=== PATIENT | male | born 1975 | race Caucasian/White ===

== ENCOUNTER 2020-12-20 23:58 | Emergency (ER) | payer BC, SELFPAY ==
[2020-12-21 00:03] VITALS: BP 118/56; PULSE 115; RESP 20; TEMP 36.9; O2SAT 98
[2020-12-21] MEDS: SODIUM CHLORIDE 0.9% 1,000 ML 1000 ML IV (00:29)
[2020-12-21 00:31] LABS: Add Manual Diff / Slide Review NO; Basophils Absolute Auto 0 /uL (0-100); Basophils Percent Auto 0.2 % (0-2); Eosinophils Absolute Auto 0 /uL (0-450); Eosinophils Percent Auto 0.1 % (2-4); Hematocrit 44.1 % (41-53); Hemoglobin 15.2 g/dL (13.5-17.5); Lymphocytes Absolute Auto 300 /uL (1100-4500); Mean Corpuscular HGB Conc 34.3 % (30-36); Mean Corpuscular Volume 87.4 fL (80-100); Monocytes Absolute Auto 200 /uL (0-900); Monocytes Percent Auto 2.3 % (3-14); Neutrophils Absolute Auto 8700 /uL (1500-7000); Neutrophils Percent Auto 94.4 % (50-75); Platelet Count 119 X10^3/uL (150-400); Red Blood Cell Count 5.05 X10^6/uL (4.5-5.9); Red Cell Distribution Width 14.8 % (11.6-14.8); White Blood Cell Count 9.2 X10^3/uL (4.5-11.0)
[2020-12-21 00:34] LABS: Alanine Aminotransferase 97 IU/L (<50); Albumin Globulin Ratio 1.1 (1.0-2.8); Alkaline Phosphatase 105 U/L (38-126); Aspartate Aminotransferase 75 IU/L (17-59); BUN Creatinine Ratio 16.8 (6-22); Bilirubin Total 2.1 mg/dL (0.2-1.3); Blood Urea Nitrogen 19 mg/dL (9-20); Calcium 9.7 mg/dL (8.4-10.2); Carbon Dioxide 25 mmol/L (22-32); Chloride 99 mmol/L (98-107); Estimated Glomerular Filt Rate > 60.0 mL/min (>60); Globulin 3.5 g/dL (1.7-4.1); Glucose 148 mg/dL (70-100); HEMOLYSIS < 15 (0-50); Potassium 3.6 mmol/L (3.4-5.1); Sodium 133 mmol/L (137-145); Total Protein 7.5 g/dL (6.3-8.2)
--- NOTE | 2020-12-21 00:35 | ED_ITS ---
HPI - Headache General Chief Complaint: Headache Stated Complaint: thinks he has heat stroke Time Seen by Provider: 12/21/20 00:08 Mode of arrival: Ambulatory History of Present Illness HPI Narrative: Patient is a 45-year-old male here for evaluation of we thinks is a heat injury. He is also having a headache. He states that 2 days ago when it was hot outside he was outside doing some target shooting. He thought that he was drinking enough water however since that time he has felt very poorly. Has had decreased urine output. Has had a headache and generally not feeling well. Related Data Home Medications Medication Instructions Recorded Confirmed donepezil 5 mg tablet (Aricept) PO HS #0 08/23/16 Allergies Allergy/AdvReac Type Severity Reaction Status Date / Time amoxicillin [AMOXICILLIN] Allergy Intermediate white rash Unverified 10/03/17 12 :08 iodine [IODINE] Allergy Unknown Unverified 10/03/17 12:08 fexofenadine [From JEREMY] AdvReac Unknown Unverified 10/03/17 12:08 morphine [MORPHINE] AdvReac Unknown NEVER HAD Unverified 10/03/17 12:08 RELIEF FROM THIS MED Review of Systems Constitutional Constitutional: Reports headache(s) ENT Ears, Nose, Mouth, and Throat: Reports headache(s) Cardiovascular Cardiovascular: Denies chest pain and Denies dyspnea Respiratory Respiratory: Denies dyspnea Gastrointestinal Gastrointestinal: Reports system reviewed and no additional complaints, except as documented and Reports nausea Musculoskeletal Musculoskeletal: Reports system reviewed and no additional complaints, except as documented Integumentary/Breasts Skin/Breast: Reports system reviewed and no additional complaints, except as documented Neurologic Neurologic: Reports headache(s) Hematologic/Lymphatic On Anticoagulants: No Patient History Medical History Healthy adult Social History lives independently: Yes Exam Initial Vital Signs Initial Vital Signs: Vital Signs Temperature 98.5 F 12/21/20 00:03 Pulse Rate 115 H 12/21/20 00:03 Respiratory Rate 20 12/21/20 00:03 Blood Pressure 118/56 L 12/21/20 00:03 Pulse Oximetry 98 12/21/20 00:03 Const General: cooperative, healthy appearing and comfortable [facility] Head: normal to inspection and atraumatic Resp Effort & Inspection: normal respiratory effort Cardio Rate: tachycardic GI Inspection: non-distended Skin General: no rashes or lesions noted Neuro General: patient alert and patient awake Extrem General: normal to inspection Psych Appearance: grossly normal and well kempt Course Orders Ordered: ED Orders 12/21/20 00:24 Complete Blood Count AUTO DIFF Stat Comprehensive Metabolic Panel Stat Discontinued Medications Sodium Chloride (Normal Saline 0.9%) 1,000 mls @ 1,000 mls/hr IV BOLUS ONE Stop: 12/21/20 01:20 Last Infusion: 12/21/20 01:38 Dose: 0 mls/hr Documented by: Admin: 12/21/20 00:29 Dose: 1,000 mls/hr Documented by: BENSON Vital Signs Vital signs: Vital Signs - 8 hr 12/21/20 00:03 12/21/20 01:53 Temperature 98.5 F Pulse Rate 115 H 69 Respiratory Rate 20 16 Blood Pressure 118/56 L 114/67 Pulse Oximetry 98 100 MDM - Headache Lab Data Result diagrams: 12/21/20 00:24 12/21/20 00:24 Labs: Lab Results 12/21/20 12/21/20 Range/Units 00:24 00:24 WBC 9.2 (4.5-11.0) X10^3/uL RBC 5.05 (4.5-5.9) X10^6/uL Hgb 15.2 (13.5-17.5) g/dL Hct 44.1 (41-53) % MCV 87.4 (80-100) fL MCH 30.0 (26-34) PG MCHC 34.3 (30-36) % RDW 14.8 (11.6-14.8) % Plt Count 119 L (150-400) X10^3/uL Neut % (Auto) 94.4 H (50-75) % Lymph % (Auto) 3.0 L (25-40) % Kendall % (Auto) 2.3 L (3-14) % Eos % (Auto) 0.1 L (2-4) % Baso % (Auto) 0.2 (0-2) % Neut # (Auto) 8700 H (4410-2712) /uL Lymph # (Auto) 300 L (5730-9151) /uL Kendall # (Auto) 200 (0-900) /uL Eos # (Auto) 0 (0-450) /uL Baso # (Auto) 0 (0-100) /uL Sodium 133 L (137-145) mmol/L Potassium 3.6 (3.4-5.1) mmol/L Chloride 99 (98-107) mmol/L Carbon Dioxide 25 (22-32) mmol/L BUN 19 (9-20) mg/dL Creatinine 1.13 (0.66-1.25) mg/dL Estimated GFR > 60.0 (>60) mL/min BUN/Creatinine Ratio 16.8 (6-22) Glucose 148 H (70-100) mg/dL Calcium 9.7 (8.4-10.2) mg/dL Total Bilirubin 2.1 H (0.2-1.3) mg/dL AST 75 H (17-59) IU/L ALT 97 H (<50) IU/L Alkaline Phosphatase 105 (38-126) U/L Total Protein 7.5 (6.3-8.2) g/dL Albumin 4.0 (3.5-5.0) g/dL Globulin 3.5 (1.7-4.1) g/dL Albumin/Globulin Ratio 1.1 (1.0-2.8) MDM Narrative Medical decision making narrative: Patient's labs are unremarkable. He did urinate here in the emergency department and postvoid residual shows 15 cc of urine in his bladder. He received 3 units of normal saline and afterwards reported that he felt much better. He is also able to tolerate oral intake. I do suspect that he is dehydrated probably for being outdoors in the heat over the past several days peer patient states he is feeling well enough to go home. He was given return precautions and follow-up instructions. He expressed understanding and agreement. Discharge Plan Departure Patient Disposition: Home Clinical Impression: Dehydration Instructions: DI for Dehydration -- Adult Activity Restrictions/Additional Instructions: I do recommend that you continue to drink small amounts of fluid over longer periods of time. I would recommend that you drink fluids with electrolytes in it. Contact your primary provider for follow-up. Return to the emergency department for any new or worsening symptoms Prescriptions: No Action donepezil [Aricept] 5 mg tablet PO HS Qty: 0 RF: 0
[2020-12-21 01:53] VITALS: BP 114/67; PULSE 69; RESP 16; O2SAT 100
== END 2020-12-21 02:01 | disposition home or self-care (01) ==
PROVIDERS: Emergency Provider Emergency Medicine
DX: E86.0 Dehydration (principal)
CPT/HCPCS: 36415; 51798; 80053; 85025; 96360; 99284

== ENCOUNTER 2020-12-23 23:24 | Emergency (ER) | payer BC, SELFPAY ==
[2020-12-23 23:40] VITALS: BP 131/83; PULSE 94; RESP 18; TEMP 36.5; O2SAT 97; BMI 29.8
[2020-12-23 23:57] LABS: Bacteria Urine None Seen; WBC Urine None Seen (0-5/HPF)
[2020-12-23 23:58] VITALS: PULSE 71; O2SAT 93
--- NOTE | 2020-12-23 23:58 | ED_ITS ---
HPI - Abdominal Pain General Chief Complaint: Abdominal Pain Stated Complaint: heat stroke Time Seen by Provider: 12/23/20 23:40 Source: patient Mode of arrival: Ambulatory Limitations: no limitations History of Present Illness HPI narrative: Patient here complains of lower abdominal pain as well as increased thirst. Patient seen here 2 days ago for heat exposure. This past Sunday he was in very high dangerous he trap shooting. He was seen here 2 days ago for rehydration. Since then he continues to have increased thirst but now has lower abdominal discomfort. Has had very little stool output. He states he has no energy as well. No chest pain no cough cold congestion fever chills. Patient states also urine output has decreased and when he was here after IV fluids it cleared up but now urine is dark again. Related Data Previous Rx's Medication Instructions Recorded ciprofloxacin HCl 500 mg tablet 500 mg PO BID #14 tab 12/24/20 metronidazole 500 mg tablet 500 mg PO TID #21 tab 12/24/20 Allergies Allergy/AdvReac Type Severity Reaction Status Date / Time amoxicillin [AMOXICILLIN] Allergy Intermediate white rash Verified 12/23/20 23:39 iodine [IODINE] Allergy Unknown Verified 12/23/20 23:39 fexofenadine [From JEREMY] AdvReac Unknown Verified 12/23/20 23:39 morphine [MORPHINE] AdvReac Unknown NEVER HAD Verified 12/23/20 23:39 RELIEF FROM THIS MED Review of Systems Review of Systems Narrative: GENERAL: Denies chills, complains of fatigue, malaise, denies fever, sweats. HEENT: Denies sinus pain, ear pain, sore throat RESPIRATORY: Denies dyspnea, cough CARDIOVASCULAR: Denies chest pain, palpitations GASTROINTESTINAL: Denies nausea, vomiting, complaint abdominal pain : Denies dysuria, frequency, hematuria, complains of dark urine and decreased urine output. MUSCULOSKELETAL: denies muscle or bony pain SKIN: Denies rash, skin lesions NEUROLOGIC: Denies weakness, numbness ROS Unobtainable: All systems reviewed & are unremarkable except as noted in HPI and below Patient History Medical History Healthy adult Social History lives independently: Yes Smoking Status: Never smoker Smoking Status: Never smoker alcohol intake frequency: a few times a week Substance Use Type: does not use Exam Narrative Exam Narrative: GENERAL: in no distress, not toxic not dyspneic HEAD: Normocephalic. EYES: Pupils equal round No scleral icterus. No injection no discharge ENT: Mucous membranes moist. NECK: Trachea midline. CARDIOVASCULAR: Regular rate and rhythm without murmurs RESPIRATORY: Clear to auscultation. Breath sounds equal bilaterally. No wheezes, rales, or rhonchi. GASTROINTESTINAL: Abdomen soft, non-tender, bowel sounds present, no peritoneal signs, EXTREMITIES: No gross deformities. BACK: No flank tenderness. NEURO: AOx4. SKIN: Warm and dry PSYCH: Not anxious, is cooperative Initial Vital Signs Initial Vital Signs: Vital Signs Temperature 97.7 F 12/23/20 23:40 Pulse Rate 94 H 12/23/20 23:40 Respiratory Rate 18 12/23/20 23:40 Blood Pressure 131/83 12/23/20 23:40 Pulse Oximetry 97 12/23/20 23:40 Course Course Course Narrative: No new issues during course of stay Orders Ordered: ED Orders 12/23/20 23:45 Complete Blood Count AUTO DIFF Stat Comprehensive Metabolic Panel Stat Ictotest Urine Stat Lipase Stat Urine Microscopic Stat 12/23/20 23:58 CT abdomen pelvis wo con Stat 12/24/20 00:03 Urine Drug Screen, Rapid Stat 12/24/20 01:55 Acetaminophen Stat Discontinued Medications Ciprofloxacin (Ciprofloxacin 250 Mg Tablet) 500 mg PO NOW ONE Stop: 12/24/20 01:49 Last Admin: 12/24/20 01:53 Dose: 500 mg Documented by: DBROYLE Sodium Chloride (Normal Saline 0.9%) 1,000 mls @ 1,000 mls/hr IV BOLUS ONE Stop: 12/24/20 00:56 Last Infusion: 12/24/20 01:02 Dose: 0 mls/hr Documented by: Admin: 12/24/20 00:03 Dose: 1,000 mls/hr Documented by: DBROYLE Sodium Chloride (Normal Saline 0.9%) 1,000 mls @ 1,000 mls/hr IV BOLUS ONE Stop: 12/24/20 02:54 Last Admin: 12/24/20 02:00 Dose: 1,000 mls/hr Documented by: REINIER Metronidazole (Metronidazole 500 Mg Tablet) 500 mg PO NOW ONE Stop: 12/24/20 01:49 Last Admin: 12/24/20 01:53 Dose: 500 mg Documented by: BRENDAN Reevaluation(s) Reevaluation #1: Pain controlled. Reviewed results of laboratory studies and imaging with patient. Reviewed CT scan results of diverticulitis explain the lower abdominal discomfort. Patient not toxic. Patient agrees with outpatient antibiotics. Reviewed her laboratory studies of elevated liver enzymes and drug screen. He does not drink alcohol. However he states he has been taking his left over hydrocodone as well as taking 1 g of Tylenol 3 times a day. Informed them to stop taking medications that has Tylenol in it. Patient is not jaundiced. No altered mental status. Liver enzymes elevated since last visit. He agrees with switching to ibuprofen if needed Vital Signs Vital signs: Vital Signs - 8 hr 12/23/20 23:40 12/23/20 23:58 12/23/20 23:59 Temperature 97.7 F Pulse Rate 94 H 71 71 Pulse Rate [Orthostatic Lying] Pulse Rate [Orthostatic Sitting] Pulse Rate [Orthostatic Standing] Respiratory Rate 18 Blood Pressure 131/83 140/82 Blood Pressure [Orthostatic Lying] Blood Pressure [Orthostatic Sitting] Blood Pressure [Orthostatic Standing] Pulse Oximetry 97 93 94 12/24/20 00:00 12/24/20 00:01 12/24/20 00:04 Temperature Pulse Rate 76 77 Pulse Rate [Orthostatic Lying] 71 Pulse Rate [Orthostatic Sitting] 72 Pulse Rate [Orthostatic Standing] 80 Respiratory Rate Blood Pressure 142/85 H 131/79 Blood Pressure [Orthostatic Lying] 140/82 Blood Pressure [Orthostatic Sitting] 142/85 H Blood Pressure [Orthostatic Standing] 131/79 Pulse Oximetry 94 97 MDM - Abdominal Pain Differential Diagnosis Differential diagnosis: Likely abdominal pain, acute appendicitis, diverticulitis, gastroenteritis, small bowel obstruction and other (Dehydration) Lab Data Result diagrams: 12/23/20 23:45 12/23/20 23:45 Labs: Lab Results 12/23/20 12/23/20 12/23/20 Range/Units 23:45 23:45 23:45 WBC 11.0 (4.5-11.0) X10^3/uL RBC 5.02 (4.5-5.9) X10^6/uL Hgb 14.7 (13.5-17.5) g/dL Hct 43.7 (41-53) % MCV 86.9 (80-100) fL MCH 29.3 (26-34) PG MCHC 33.7 (30-36) % RDW 15.2 H (11.6-14.8) % Plt Count 167 (150-400) X10^3/uL Neut % (Auto) 73.0 (50-75) % Lymph % (Auto) 15.3 L (25-40) % Garrett % (Auto) 9.5 (3-14) % Eos % (Auto) 1.6 L (2-4) % Baso % (Auto) 0.6 (0-2) % Neut # (Auto) 8000 H (1345-4850) /uL Lymph # (Auto) 1700 (0731-4201) /uL Garrett # (Auto) 1000 H (0-900) /uL Eos # (Auto) 200 (0-450) /uL Baso # (Auto) 100 (0-100) /uL Sodium 135 L (137-145) mmol/L Potassium 3.2 L (3.4-5.1) mmol/L Chloride 98 (98-107) mmol/L Carbon Dioxide 27 (22-32) mmol/L BUN 12 (9-20) mg/dL Creatinine 0.83 (0.66-1.25) mg/dL Estimated GFR > 60.0 (>60) mL/min BUN/Creatinine Ratio 14.5 (6-22) Glucose 98 (70-100) mg/dL Calcium 9.1 (8.4-10.2) mg/dL Total Bilirubin 2.6 H (0.2-1.3) mg/dL AST 157 H (17-59) IU/L ALT 164 H (<50) IU/L Alkaline Phosphatase 164 H D (38-126) U/L Total Protein 7.1 (6.3-8.2) g/dL Albumin 3.6 (3.5-5.0) g/dL Globulin 3.5 (1.7-4.1) g/dL Albumin/Globulin Ratio 1.0 (1.0-2.8) Lipase 46 (23-300) U/L Ur Bilirubin Confirm Positive H (Negative) Urine RBC 10-30/hpf H (0-5/HPF) Urine WBC None seen (0-5/HPF) Urine Bacteria None seen (None) Urine Mucus 1+ H (Negative) Ur Culture Indicated? Cult not indicated U Opiates 300ng/mL cut (Negative) Ur Oxycodone Screen (Negative) Urine Methadone Screen (Negative) Acetaminophen (10-30) ug/mL Ur Barbiturates Screen (Negative) U Tricyclic Antidepress (Negative) Ur Phencyclidine Scrn (Negative) Ur Amphetamines Screen (Negative) U Methamphetamines Scrn (Negative) Ur MDMA Scrn (Ecstasy) (Negative) U Benzodiazepines Scrn (Negative) Urine Cocaine Screen (Negative) U Marijuana (THC) Screen (Negative) 12/23/20 12/23/20 Range/Units 23:45 23:45 WBC (4.5-11.0) X10^3/uL RBC (4.5-5.9) X10^6/uL Hgb (13.5-17.5) g/dL Hct (41-53) % MCV (80-100) fL MCH (26-34) PG MCHC (30-36) % RDW (11.6-14.8) % Plt Count (150-400) X10^3/uL Neut % (Auto) (50-75) % Lymph % (Auto) (25-40) % Garrett % (Auto) (3-14) % Eos % (Auto) (2-4) % Baso % (Auto) (0-2) % Neut # (Auto) (6097-3434) /uL Lymph # (Auto) (6719-0765) /uL Garrett # (Auto) (0-900) /uL Eos # (Auto) (0-450) /uL Baso # (Auto) (0-100) /uL Sodium (137-145) mmol/L Potassium (3.4-5.1) mmol/L Chloride (98-107) mmol/L Carbon Dioxide (22-32) mmol/L BUN (9-20) mg/dL Creatinine (0.66-1.25) mg/dL Estimated GFR (>60) mL/min BUN/Creatinine Ratio (6-22) Glucose (70-100) mg/dL Calcium (8.4-10.2) mg/dL Total Bilirubin (0.2-1.3) mg/dL AST (17-59) IU/L ALT (<50) IU/L Alkaline Phosphatase (38-126) U/L Total Protein (6.3-8.2) g/dL Albumin (3.5-5.0) g/dL Globulin (1.7-4.1) g/dL Albumin/Globulin Ratio (1.0-2.8) Lipase (23-300) U/L Ur Bilirubin Confirm (Negative) Urine RBC (0-5/HPF) Urine WBC (0-5/HPF) Urine Bacteria (None) Urine Mucus (Negative) Ur Culture Indicated? U Opiates 300ng/mL cut Positive H (Negative) Ur Oxycodone Screen Negative (Negative) Urine Methadone Screen Negative (Negative) Acetaminophen < 10 L (10-30) ug/mL Ur Barbiturates Screen Negative (Negative) U Tricyclic Antidepress Negative (Negative) Ur Phencyclidine Scrn Negative (Negative) Ur Amphetamines Screen Negative (Negative) U Methamphetamines Scrn Negative (Negative) Ur MDMA Scrn (Ecstasy) Negative (Negative) U Benzodiazepines Scrn Negative (Negative) Urine Cocaine Screen Negative (Negative) U Marijuana (THC) Screen Negative (Negative) Point of care testing: Urine Dip Bedside Urine Glucose Negative Bedside Urine Bilirubin + 1 Bedside Urine Ketone +++ 80 Urine Specific [place]ountain 1.015 Bedside Urine Occult Blood ++ Bedside Urine pH 6.0 Bedside Urine Protein + 30 Bedside Urine Urobilinogen 2+ 4mg Bedside Urine Nitrite - Negative Bedside Urine Leukocytes - Negative Esterase Imaging Data CT scan - abdomen/pelvis: Radiologist's Impression: CT scan abdomen pelvis read by overnight radiologist extensive scattered colonic diverticulosis greatest at the level of the sigmoid colon. Findings most consistent with changes of acute diverticulitis. No secondary complication. MDM Narrative Medical decision making narrative: Appropriate for discharge home. Pain is controlled. Return precautions reviewed with patient and agrees with treatment plan. Patient no longer takes donepezil Discharge Plan Departure Patient Disposition: Home Clinical Impression: Diverticulitis Instructions: DI for Diverticulitis Activity Restrictions/Additional Instructions: Do not consume Tylenol containing medications. Do not drink alcohol while taking new prescriptions. May use ibuprofen for pain. Call provided general surgeon tomorrow for office recheck in a week and schedule outpatient colonoscopy. Return if worse or if any questions or concerns Prescriptions: New metronidazole 500 mg tablet 500 mg PO TID Qty: 21 RF: 0 ciprofloxacin HCl 500 mg tablet 500 mg PO BID Qty: 14 RF: 0 Referrals: Cornelius Edwards MD [Physician] -
--- NOTE | 2020-12-23 23:58 | DI.CT.S_ITS ---
PROCEDURE: CT ABDOMEN PELVIS WO CON INDICATIONS: lower abdominal pain TECHNIQUE: After the administration of oral contrast, 5 mm thick sections acquired from the diaphragms to the symphysis. 5 mm coronal and sagittal reformats were performed. For radiation dose reduction, the following was used: automated exposure control, adjustment of mA and/or kV according to patient size. COMPARISON: [facility], CT, ABDOMEN/PELVIS WITH CONTRAST, 08/23/2016, 19:32. FINDINGS: Image quality: Excellent. ABDOMEN: Lung bases: Dependent atelectasis at the right lung base.. Heart size is normal. Small hiatal hernia. Solid organs: Liver is mildly enlarged. Hepatic steatosis. Gallbladder is absent . Pancreas is normal in size. Spleen is normal in size. No adrenal nodules. Both kidneys are normal in size, without hydronephrosis or nephrolithiasis. Peritoneum and bowel: Bowel loops demonstrate normal caliber. There are numerous colonic diverticula. There is focal thickening and inflammatory stranding around a sigmoid diverticulum consistent with diverticulitis. Marked mesenteric stranding. There is a small amount of free fluid. No free air. Nodes and vessels: There are numerous mildly enlarged mesenteric lymph nodes in the left lower quadrant with associated mesenteric stranding. No retroperitoneal adenopathy by size criteria. Aorta and inferior vena cava are normal in size. Miscellaneous: No ventral hernias. PELVIS: Genitourinary: Bladder wall thickness is normal. Miscellaneous: No inguinal hernias or adenopathy. Bones: No suspicious bony lesions. No vertebral body compression fractures. IMPRESSION: 1. Acute sigmoid diverticulitis. A small amount of free fluid is present. No organized drainable fluid collections to suggest abscess. No free peritoneal air. 2. There are mildly enlarged mesenteric lymph nodes and marked mesenteric stranding consistent with reactive mesenteric adenitis and panniculitis. Consider follow-up CT after adequate treatment of acute illness. 3. Hepatic steatosis. No significant discrepancy with the shift lab technician radiology preliminary report. Dictated by: Susana Perry M.D. on 12/24/2020 at 7:45 Approved by: Susana Perry M.D. on 12/24/2020 at 8:25
[2020-12-23 23:59] VITALS: BP 140/82; PULSE 71; O2SAT 94
[2020-12-24] VITALS: BP 142/85; PULSE 76; O2SAT 94
[2020-12-24 00:01] VITALS: BP 131/79; PULSE 77; O2SAT 97
[2020-12-24] MEDS: SODIUM CHLORIDE 0.9% 1,000 ML 1000 ML IV ×2 (00:03→02:00)
[2020-12-24 00:04] VITALS: BP 131/79; BP 140/82; BP 142/85; PULSE 71; PULSE 72; PULSE 80
[2020-12-24 00:09] LABS: Add Manual Diff / Slide Review NO; Basophils Absolute Auto 100 /uL (0-100); Basophils Percent Auto 0.6 % (0-2); Eosinophils Absolute Auto 200 /uL (0-450); Eosinophils Percent Auto 1.6 % (2-4); Hematocrit 43.7 % (41-53); Hemoglobin 14.7 g/dL (13.5-17.5); Lymphocytes Absolute Auto 1700 /uL (1100-4500); Lymphocytes Percent Auto 15.3 % (25-40); Mean Corpuscular HGB Conc 33.7 % (30-36); Mean Corpuscular Hemoglobin 29.3 PG (26-34); Mean Corpuscular Volume 86.9 fL (80-100); Monocytes Absolute Auto 1000 /uL (0-900); Monocytes Percent Auto 9.5 % (3-14); Neutrophils Absolute Auto 8000 /uL (1500-7000); Platelet Count 167 X10^3/uL (150-400); Red Blood Cell Count 5.02 X10^6/uL (4.5-5.9); Red Cell Distribution Width 15.2 % (11.6-14.8)
[2020-12-24 00:21] LABS: Alanine Aminotransferase 164 IU/L (<50); Albumin 3.6 g/dL (3.5-5.0); Alkaline Phosphatase 164 U/L (38-126); Aspartate Aminotransferase 157 IU/L (17-59); BUN Creatinine Ratio 14.5 (6-22); Bilirubin Total 2.6 mg/dL (0.2-1.3); Blood Urea Nitrogen 12 mg/dL (9-20); Calcium 9.1 mg/dL (8.4-10.2); Carbon Dioxide 27 mmol/L (22-32); Chloride 98 mmol/L (98-107); Estimated Glomerular Filt Rate > 60.0 mL/min (>60); Globulin 3.5 g/dL (1.7-4.1); Glucose 98 mg/dL (70-100); HEMOLYSIS < 15 (0-50); Lipase 46 U/L (23-300); Potassium 3.2 mmol/L (3.4-5.1); Sodium 135 mmol/L (137-145); Total Protein 7.1 g/dL (6.3-8.2)
[2020-12-24 00:26] LABS: Culture Indicated Urine Cult Not Indicated; Ictotest Urine Positive (Negative); Mucus Urine 1+ (Negative); RBC Urine 10-30/HPF (0-5/HPF)
[2020-12-24 00:36] LABS: Ur Creatinine 20 (Normal); Ur Specific Gravity 1.015 (Normal); Urine pH 7 (Normal)
[2020-12-24 00:37] LABS: UR Morphine/Opiate cutoff 300 Positive (Negative); Urine Amphetamines Negative (Negative); Urine Barbiturates Negative (Negative); Urine Benzodiazepines Negative (Negative); Urine Cocaine Negative (Negative); Urine MDMA Negative (Negative); Urine Methadone Negative (Negative); Urine Methamphetamines Negative (Negative); Urine Oxycodone Negative (Negative); Urine Phencyclidine Negative (Negative); Urine Tetrahydrocannabinol Negative (Negative); Urine Tricyclic Antidepressant Negative (Negative)
[2020-12-24] MEDS: metroNIDAZOLE 500 MG TABLET PO (01:53)
[2020-12-24] MEDS: CIPROFLOXACIN 250 MG TABLET 500 MG PO (01:53)
[2020-12-24 02:29] LABS: Acetaminophen < 10 ug/mL (10-30)
[2020-12-24 03:08] VITALS: BP 131/74; PULSE 74; O2SAT 95
== END 2020-12-24 03:16 | disposition home or self-care (01) ==
PROVIDERS: Emergency Provider Emergency Medicine
DX: K57.92 Diverticulitis of intestine, part unspecified, without perforation or abscess without bleeding (principal)
CPT/HCPCS: 36415; 74176; 80053; 80305; 80329; 81003; 81015; 83690; 85025; 96360; 96361; 99284; G0480

== ENCOUNTER → 2021-03-04 11:50 | Outpatient (CLI) | payer BC, SELFPAY ==
[2021-03-04 12:12] LABS: COVID19 -Nasal RAPID Negative (Negative)
== END ==
PROVIDERS: Referring Provider Surgery; Visit Provider Surgery
DX: Z01.812 Encounter for preprocedural laboratory examination (principal); Z20.822 Contact with and (suspected) exposure to COVID-19
CPT/HCPCS: 87635; C9803

== ENCOUNTER 2021-03-07 06:45 | Day surgery (SDC) | payer BC, SELFPAY ==
[2021-03-07] VITALS (7 sets, daily range): BP systolic 104–134; BP diastolic 62–83; PULSE 63–91; RESP 12–22; TEMP 36.4–37.3; O2SAT 94–98; BMI 29.2
--- NOTE | 2021-03-07 | PATH_ITS ---
[facility] Accession Number: [id number] . 01 Material submitted: . sigmoid colon - SIGMOID COLON POLYP . 02 Diagnosis: Sigmoid Colon, Polyp, Biopsy: Tubular adenoma, two fragments. V 03/09/2021 1039 Local . 02 Electronically signed: . Sirena Bowers MD, Pathologist NPI- [id number] . 01 Gross description: . SIGMOID COLON POLYP: Received in formalin are 2 fragment(s) of ingram, soft tissue measuring 0.4 x 0.3 x 0.2 cm to 0.3 x 0.2 x 0.2 cm submitted entirely in 1 cassette(s) /SHANI 03/08/2021 0802 Local . 02 Pathologist provided ICD-10: D12.5 . 02 CPT . 362382 Performed at: 01 [facility] [address] [id number] MD Gabe Mooney MD Phone: [phone] Performed at: 02 [facility] [address] [place], [place] [id number] MD Sirena Bowers MD Phone: [phone]
--- NOTE | 2021-03-07 07:49 | P.HP_ITS ---
History of Present Illness History of Present Illness Date Patient Seen: 03/07/21 Time Patient Seen: 07:49 Chief complaint: IDC Narrative: 45-year-old man here colonoscopy. He had an episode of uncomplicated diverticulitis 2 months ago and at this point has returned back to his baseline health. Please see the H& P from December 2020 further detail. There has been no other interval changes in health. Patient History Medical History Healthy adult Reflux esophagitis Weight loss Surgical History History of laparoscopic cholecystectomy Family & Social History Social History: household members significant other lives independently Yes Tobacco & Substance use: Smoking Status Never smoker alcohol intake current alcohol intake frequency a few times a week Substance Use Type does not use Meds Home Medications and Allergies Home Medications Medication Instructions Recorded Confirmed Type sodium,potassium,mag sulfates 17.5 See Rx Instructions PO .COMPLEX 12/30/20 03/07/21 Rx gram-3.13 gram-1.6 gram oral soln #354 ml (Suprep Bowel Prep Kit) Allergies Allergy/AdvReac Type Severity Reaction Status Date / Time amoxicillin [AMOXICILLIN] Allergy Intermediate white rash Verified 12/29/20 14:00 iodine [IODINE] Allergy Unknown Verified 12/29/20 14:00 fexofenadine [From JEREMY] AdvReac Unknown Verified 12/29/20 14:00 morphine [MORPHINE] AdvReac Unknown NEVER HAD Verified 12/29/20 14:00 RELIEF FROM THIS MED Exam Vital Signs (past 8 hours): - 03/07/21 07:19 Temperature 97.6 F Pulse Rate 91 H Respiratory Rate 22 Blood Pressure 134/83 Pulse Oximetry 98 Oxygen Delivery Method Room Air Narrative Exam Narrative: Constitutional-he is oriented to person, place and time. No apparent distress Cardiovascular- regular rate, no peripheral edema Pulmonary-unlabored respiratory effort, no audible wheezing Abdominal-soft, non-tender, non-distended Musculoskeletal-no cyanosis or clubbing Neurological-nonfocal, normal strength throughout, normal gait. Skin-warm and dry Assessment & Plan Assessment and plan (1) Diverticulitis: Status: Acute Assessment & Plan narrative: 45-year-old man with history of uncomplicated div erticulitis several months ago here for follow-up colonoscopy. Technical details of the procedure were discussed with the patient. Procedural risks including bleeding intestinal perforation missed diagnosis need for major abdominal surgery were discussed the patient. His questions have been answered and he is in agreement with this Time Spent With Patient Critical Care time: I spent a total of [] minutes of critical care time on this patient's care today; this time is exclusive of procedural time.
[2021-03-07] MEDS: MIDAZOLAM 5 MG/5 ML VIAL IV (08:08)
[2021-03-07] MEDS: fentaNYL 250 MCG/5 ML INJ IV (08:08)
--- NOTE | 2021-03-07 08:27 | PM.OP.ENDO ---
Operative Date/Time/Diagnoses Date of procedure: 03/07/21 Time of procedure: 08:28 Pre-op diagnosis: diverticulosis Post-op diagnosis: same Procedure & Clinicians Study performed: colonoscopy Indications: uncomplicated diverticulitis several months ago Surgeon: Sekou Cunningham Procedure Notes Procedure in detail: Medications: Conscious sedation using 7mg IV midazolam and 200mcg IV of fentanyl The history and physical was performed/updated and the patient is ASA class is 2. The procedure was discussed in detail with the patient. Potential risks complications including infection, bleeding, missed diagnosis, perforation, need for surgery, and were explained. Their questions were answered and informed consent was obtained. Patient was brought to the procedure room and placed standard monitoring equipment. The patient's vital signs were monitored continuously throughout the entire procedure. Prior to starting time-out was performed. The patient was placed in the left lateral recumbent position. Procedural sedation was administered. Examination began with a thorough inspection of the perianal area there was no evidence of fissures, fistulae, external hemorrhoids or cutaneous malignancy. The colonoscopy scope was then placed into the anal canal and was advanced to the cecum, which was identified by the ileocecal valve, the appendiceal orifice and the confluence of the taenia. The scope was then slowly withdrawn examining colon thoroughly in all directions, irrigating it of any residual stool. FINDINGS 1. Sigmoid diverticulosis 2. 5 mm sigmoid polyp removed with biopsy forceps The patient tolerated the procedure well. They will be discharged once criteria are met. The prep was of good/excellent quality. The withdrawl time was 8 minutes. The sedation time was 27 minutes. Specimen(s): other (Sigmoid polyp) Complications: none Impression: Diverticulosis, sigmoid polyp Post-procedure Recommendations: Colonscopy in 5 years and High fiber diet Disposition: same day surgery
[2021-03-07] MEDS: LACTATED RINGERS 1,000 ML 200 ML IV (08:46)
== END 2021-03-07 10:08 | disposition home or self-care (01) ==
PROVIDERS: Referring Provider Surgery; Visit Provider Surgery
PROC: 0DJD8ZZ Inspection of Lower Intestinal Tract, Via Natural or Artificial Opening Endoscopic (ICD-10-PCS; CPT 45378; principal; 2021-03-07 07:45)
DX: D12.5 Benign neoplasm of sigmoid colon (principal); K57.30 Diverticulosis of large intestine without perforation or abscess without bleeding; Z87.19 Personal history of other diseases of the digestive system
CPT/HCPCS: 45380; 99152; 99153; J2250; J3010

== ENCOUNTER 2022-09-04 02:16 | Emergency (ER) | payer BC, SELFPAY ==
[2022-09-04 02:25] VITALS: BP 128/81; PULSE 105; RESP 18; TEMP 36.8; O2SAT 97; BMI 30.4
--- NOTE | 2022-09-04 02:33 | DI.CT.S_ITS ---
PROCEDURE: CT ABDOMEN PELVIS W CON INDICATIONS: right sided pain, hx diverticulitis TECHNIQUE: After the administration of intravenous contrast, axial sections acquired from the lung bases to the pubic symphysis. Coronal and sagittal reformats were performed. For radiation dose reduction, the following was used: automated exposure control, adjustment of mA and/or kV according to patient size. COMPARISON: [facility], CT, ABDOMEN/PELVIS WITH CONTRAST, 08/23/2016, 19:32. FINDINGS: Image quality: Diagnostic. There is IV contrast extravasation at the site of injection. No IV contrast is noted during the study. Lung bases: Mild right basilar dependent atelectasis is seen. Heart: No significant findings. ABDOMEN: Liver: There is hepatomegaly, no discrete hepatic lesion.. Gallbladder: Gallbladder is surgically absent. Biliary ducts: Unremarkable. Pancreas: Unremarkable. Spleen: Unremarkable. Adrenal Glands: Unremarkable. Kidneys and Ureters: No stones or hydronephrosis. No hydroureter.. Stomach and Bowel: There is no bowel obstruction. No gastric or small bowel wall thickening. Appendix is visualized and is within normal limits. Significant wall thickening and pericolonic fat stranding involving mid sigmoid colon is seen. Sigmoid diverticulosis is also noted. No abscess collection. Peritoneum: No abnormal intraperitoneal fluid. No free air. Ventral Wall: No hernias. Abdominal Nodes: No retroperitoneal or mesenteric adenopathy by size criteria. Vessels: Aorta and inferior vena cava are normal in size. PELVIS: Pelvic Organs: Unremarkable. Bladder: Unremarkable. Pelvic Nodes: No enlarged lymph nodes. Miscellaneous: No hernias are seen. Bones: No suspicious bony lesions. No acute vertebral body compression fracture. IMPRESSION: 1. Acute diverticulitis involving mid sigmoid colon in lower pelvis. No signs of perforation. No abscess collection. No free fluid or free air. 2. Normal appendix. No bowel obstruction. 3. Hepatomegaly, no discrete hepatic lesion. Prior cholecystectomy. No discrepancies. Dictated by: Darian Rockwell M.D. on 09/04/2022 at 7:56 Approved by: Darian Rockwell M.D. on 09/04/2022 at 8:00
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
== END 2022-09-04 04:10 | disposition left against medical advice (07) ==
PROVIDERS: Emergency Provider Emergency Medicine
DX: K57.92 Diverticulitis of intestine, part unspecified, without perforation or abscess without bleeding (principal)
CPT/HCPCS: 36415; 74177; 81003; 99283; 99284; Q9967